=== PATIENT | male | born 1945 | race Caucasian/White ===

== ENCOUNTER 2018-11-03 10:26 | Day surgery (SDC) | payer MEDICARE, OTHER ==
[2018-11-03] MEDS ORDERED: Gatifloxacin 0.5% Ophth Soln 2.5 ML Bot EYELF SCH (10:30)
[2018-11-03] MEDS ORDERED: Lactated Ringers 1,000 ML IV SCH (10:30)
[2018-11-03] MEDS ORDERED: Sodium Chloride 0.9% 10 ML Syringe FLUSH PRN (10:30)
[2018-11-03] MEDS: Phenylephrine 10% Ophth Soln 5 ML Bot EYELF SCH ×3 (10:47→11:15)
[2018-11-03] MEDS: Cyclopentolate 1% Opth Soln 2 ML Bottle EYELF SCH ×3 (10:52→11:34)
[2018-11-03] MEDS ORDERED: Water For Irrigation,Sterile 1,500 ML Container IRR ONE (12:38)
[2018-11-03] MEDS ORDERED: EPINEPHrine 1 MG/ML SDV ONE (12:39)
[2018-11-03] MEDS ORDERED: Balanced Salt Solution Ophth Irrig 15 ML Bottle EYELF ONE (12:39)
[2018-11-03] MEDS ORDERED: Carbachol 0.01% Intraocular 1.5 ML Vial EYELF ONE (12:39)
[2018-11-03] MEDS ORDERED: Balanced Salt Solution Plus Ophth Irrig 500 ML Bottle IOCULAR ONE (12:39)
[2018-11-03] MEDS ORDERED: Dexamethasone/Neomycin/Polymyxin B Ophth Oint 3.5 GM Tube EYELF ONE (12:39)
[2018-11-03] MEDS ORDERED: Hyaluronate Sodium 1% 0.85 ML Syringe IOCULAR ONE (12:40)
[2018-11-03] MEDS ORDERED: Lidocaine 1% 10 ML MDV INJECT ONE (12:40)
[2018-11-03] MEDS ORDERED: Lidocaine 2% with EPINEPHrine 1:100,000 20 ML MDV INJECT ONE (12:40)
[2018-11-03] MEDS ORDERED: Tetracaine HCl/PF 0.5% 4 ML Bottle EYEBOTH ONE (12:40)
--- NOTE | 2018-11-04 08:48 | OR ---
DATE OF SURGERY: 11/03/2018 SURGEON: Saad Ellington MD PREOPERATIVE DIAGNOSIS: Cataract, left eye. POSTOPERATIVE DIAGNOSIS: Cataract, left eye. OPERATION PERFORMED: Phacoemulsification with posterior chamber lens insertion, left eye. HISTORY: The patient presents at this time with increasing amount of difficulty with the left eye with oncoming headlights. Vision for the left eye is 20/70. The left lens has a 3 to 4+ nuclear sclerosis and a 2+ posterior subcapsular cataract finding. This eye has a combined cataract and a cataract of aging. FINDINGS: The patient was taken to the operating room where appropriate anesthesia, sedation and monitoring were provided. A retrobulbar block was given on the left side. The eye was massaged and was found to be appropriately soft. The eye and eyelids were then prepped and draped in the usual sterile manner. A lid speculum was placed. A micro sharp blade was used to enter the anterior chamber inside the limbus inferior-temporally. Xylocaine was irrigated into the eye at this site. Healon was irrigated into the eye through this site. Then using a 2.85 mm corneal blade an entry was made into the anterior chamber just inside the limbus temporally. Healon was again irrigated into the eye. Then using a cystitome, the anterior capsulorrhexis was created. The lens nucleus was hydrodissected using a 27 gauge cannula and balanced salt solution. The phacoemulsification unit was introduced through the temporal site and the Nigel spatula through the inferior temporal site. In so doing, the lens nucleus was phacoemulsified. The cortical fragments of the lens were removed using the irrigation aspiration unit. The posterior capsule was polished. Healon was irrigated into the eye. The posterior chamber lens was inserted and rotated into position inside the capsular bag. The Healon was irrigated out of the eye. Miostat was irrigated into the eye and the pupil rounded nicely. A single interrupted 10-0 Nylon suture was placed through the temporal corneal incision site. Balanced salt solution was irrigated into the eye. The wound was tested and found to be tight. Maxitrol ointment was placed into the patient's left eye. The eyelids were closed and an eye patch and landin shield were placed. The patient left the operating room in good condition. /[id number]/MODL
== END 2018-11-03 13:20 | disposition home or self-care (01) ==
LOC: KA.SDS 10:26
PROVIDERS: ATTEND Ophthalmology
DX: H25.812 Combined forms of age-related cataract, left eye (principal); H90.A21 Sensorineural hearing loss, unilateral, right ear, with restricted hearing on the contralateral side; H90.A32 Mixed conductive and sensorineural hearing loss, unilateral, left ear with restricted hearing on the contralateral side; Z88.0 Allergy status to penicillin
CPT/HCPCS: 66984; A9270; C1780; J0171; J2001; J7120; 00142

== ENCOUNTER 2018-12-01 11:12 | Day surgery (SDC) | payer MEDICARE, OTHER ==
[2018-12-01] MEDS ORDERED: Lactated Ringers 1,000 ML IV SCH (11:15)
[2018-12-01] MEDS ORDERED: Sodium Chloride 0.9% 10 ML Syringe FLUSH PRN (11:15)
[2018-12-01] MEDS ORDERED: Gatifloxacin 0.5% Ophth Soln 2.5 ML Bot EYERT SCH (11:15)
[2018-12-01] MEDS: Phenylephrine 10% Ophth Soln 5 ML Bot EYERT SCH ×3 (11:25→11:48)
[2018-12-01] MEDS: Cyclopentolate 1% Opth Soln 2 ML Bottle EYERT SCH ×3 (11:30→11:55)
[2018-12-01] MEDS ORDERED: Water For Irrigation,Sterile 1,500 ML Container IRR ONE (13:08)
[2018-12-01] MEDS ORDERED: Carbachol 0.01% Intraocular 1.5 ML Vial EYERT ONE (13:08)
[2018-12-01] MEDS ORDERED: Balanced Salt Solution Plus Ophth Irrig 500 ML Bottle IOCULAR ONE (13:08)
[2018-12-01] MEDS ORDERED: Balanced Salt Solution Ophth Irrig 15 ML Bottle EYERT ONE (13:08)
[2018-12-01] MEDS ORDERED: Dexamethasone/Neomycin/Polymyxin B Ophth Oint 3.5 GM Tube EYERT ONE (13:09)
[2018-12-01] MEDS ORDERED: EPINEPHrine 1 MG/ML SDV ONE (13:09)
[2018-12-01] MEDS ORDERED: Lidocaine 1% 10 ML MDV INJECT ONE (13:10)
[2018-12-01] MEDS ORDERED: Hyaluronate Sodium 1% 0.85 ML Syringe IOCULAR ONE (13:10)
[2018-12-01] MEDS ORDERED: Lidocaine 2% with EPINEPHrine 1:100,000 20 ML MDV INJECT ONE (13:10)
[2018-12-01] MEDS ORDERED: Tetracaine HCl/PF 0.5% 4 ML Bottle EYEBOTH ONE (13:11)
--- NOTE | 2018-12-02 10:01 | OR ---
DATE OF SURGERY: 12/01/2018 SURGEON: Saad Ellington MD PREOPERATIVE DIAGNOSIS: Cataract, right eye. POSTOPERATIVE DIAGNOSIS: Cataract, right eye. OPERATION PERFORMED: Phacoemulsification with posterior chamber lens insertion, right eye. HISTORY: The patient presents at this time with an increasing amount of difficulty seeing to drive at night. The vision for the right eye is 20/60 -2. The right lens has a 3 to 4+ nuclear sclerosis and a 2+ posterior subcapsular cataract finding. This eye has a cataract that is listed as combined and it is a cataract of aging. FINDINGS: The patient was taken to the operating room where appropriate anesthesia, sedation and monitoring were provided. A retrobulbar block was given on the right side. The eye was massaged and was found to be appropriately soft. The eye and eyelids were then prepped and draped in the usual sterile manner. A lid speculum was placed. A micro sharp blade was used to enter the anterior chamber inside the limbus superior-temporally. Xylocaine was irrigated into the eye at this site. Healon was irrigated into the eye through this site. Then using a 2.85 mm corneal blade an entry was made into the anterior chamber just inside the limbus temporally. Healon was again irrigated into the eye. Then using a cystitome, the anterior capsulorrhexis was created. The lens nucleus was hydrodissected using a 27 gauge cannula and balanced salt solution. The phacoemulsification unit was introduced through the temporal site and the Nigel spatula through the superior temporal site. In so doing, the lens nucleus was phacoemulsified. The cortical fragments of the lens were removed using the irrigation aspiration unit. The posterior capsule was polished. Healon was irrigated into the eye. The posterior chamber lens was inserted and rotated into position inside the capsular bag. The Healon was irrigated out of the eye. Miostat was irrigated into the eye and the pupil rounded nicely. A single interrupted 10-0 Nylon suture was placed through the temporal corneal incision site. Balanced salt solution was irrigated into the eye. The wound was tested and found to be tight. Maxitrol ointment was placed into the patient's right eye. The eyelids were closed and an eye patch and landin shield were placed. The patient left the operating room in good condition. /[id number]/MODL
== END 2018-12-01 13:38 | disposition home or self-care (01) ==
LOC: KA.SDS 11:12
PROVIDERS: ATTEND Ophthalmology
DX: H25.811 Combined forms of age-related cataract, right eye (principal); H90.3 Sensorineural hearing loss, bilateral; H90.A32 Mixed conductive and sensorineural hearing loss, unilateral, left ear with restricted hearing on the contralateral side; Z98.42 Cataract extraction status, left eye
CPT/HCPCS: 00142; A9270-GY; C1780; J0171; J2001; J7120

== ENCOUNTER 2019-12-11 16:57 | Emergency (ER) | payer MEDICARE, OTHER ==
--- NOTE | 2019-12-11 17:31 | EDM.PDOC ---
ED HPI GENERAL MEDICAL PROBLEM - General Chief Complaint: General Stated Complaint: CHEST PAIN Time Seen by Provider: 12/11/19 17:24 Source of Information: Reports: Patient History Limitations: Reports: No Limitations - History of Present Illness INITIAL COMMENTS - FREE TEXT/NARRATIVE: Patient presents with complaint of chest pain and dyspnea. The chest pain started 7 days ago and has been intermittent and different locations. Sometimes in the right low chest, sometimes left and sometimes in the back. The pain lasts from 30 minutes to a couple hours. It doesn't seem to be worsened by activity or exertion. He says it feels somewhat similar to the reflux he used to have 3+ years ago. The dyspnea awoke him at 0230 this morning and lasted about an hour. He now gets short of breath with walking 500- 600 feet which is unusual for him. He denies cough or fever. No history of heart or lung problems. - Related Data Allergies Allergy/AdvReac Type Severity Reaction Status Date / Time Penicillins Allergy Cannot Verified 12/11/19 17:07 Remember Home Meds: Home Meds . [No Known Home Meds] 10/30/18 [History] Past Medical History HEENT History: Reports: Cataract, Impaired Vision Cardiovascular History: Reports: None Respiratory History: Reports: None Gastrointestinal History: Reports: None Genitourinary History: Reports: None Musculoskeletal History: Reports: None Neurological History: Reports: None Psychiatric History: Reports: None Endocrine/Metabolic History: Reports: None Hematologic History: Reports: None Immunologic History: Reports: None Oncologic (Cancer) History: Reports: Other (See Below) Other Oncologic History: Eyelid cancer Dermatologic History: Reports: None - Infectious Disease History Infectious Disease History: Reports: Mumps - Past Surgical History HEENT Surgical History: Reports: Eye Surgery Cardiovascular Surgical History: Reports: None Respiratory Surgical History: Reports: None GI Surgical History: Reports: Hernia Repair/Other Male Surgical History: Reports: None Endocrine Surgical History: Reports: None Neurological Surgical History: Reports: None Musculoskeletal Surgical History: Reports: None Dermatological Surgical History: Reports: None Social & Family History - Family History Family Medical History: Noncontributory - Tobacco Use Smoking Status *Q: Never Smoker Second Hand Smoke Exposure: No - Caffeine Use Caffeine Use: Reports: Coffee, Soda - Recreational Drug Use Recreational Drug Use: No ED ROS GENERAL - Review of Systems Review Of Systems: See Below Constitutional: Denies: Fever, Chills, Malaise, Weakness HEENT: Denies: Ear Pain, Throat Pain, Vision Change Respiratory: Reports: Shortness of Breath. Denies: Cough Cardiovascular: Reports: Chest Pain. Denies: Lightheadedness, Syncope Endocrine: Denies: Fatigue GI/Abdominal: Reports: Diarrhea (4 times last night). Denies: Abdominal Pain, Nausea, Vomiting : Denies: Dysuria, Flank Pain Musculoskeletal: Denies: Neck Pain, Shoulder Pain, Arm Pain, Back Pain, Hand Pain Skin: Denies: Cyanosis, Jaundice, Mottled, Pallor, Diaphoresis Neurological: Denies: Confusion, Dizziness, Headache, Seizure, Syncope, Trouble Speaking, Difficulty Walking Psychiatric: Denies: Agitation, Anxiety, Confusion ED EXAM, GENERAL - Physical Exam Exam: See Below Exam Limited By: No Limitations General Appearance: Alert, WD/WN, No Apparent Distress Eye Exam: Bilateral Eye: EOMI, Normal Inspection, PERRL Ears: Normal External Exam, Hearing Grossly Normal Nose: Normal Inspection, No Blood Throat/Mouth: Normal Inspection, Normal Lips, Normal Voice, No Airway Compromise Head: Atraumatic, Normocephalic Neck: Normal Inspection, Supple, Full Range of Motion Respiratory/Chest: No Respiratory Distress, Lungs Clear, Normal Breath Sounds, No Accessory Muscle Use, Chest Non-Tender Cardiovascular: Regular Rate, Rhythm, No Murmur GI/Abdominal: Normal Bowel Sounds, Soft, Non-Tender, No Organomegaly, No Distention Back Exam: Normal Inspection, Full Range of Motion. No: CVA Tenderness (L), CVA Tenderness (R) Extremities: Normal Inspection, Normal Range of Motion Neurological: Alert, Oriented, Normal Cognition, No Motor/Sensory Deficits Psychiatric: Normal Affect, Normal Mood Skin Exam: Warm, Dry, Intact, Normal Color, No Rash Course - Vital Signs Last Recorded V/S: Last Vital Signs Temp 97.4 F 12/11/19 17:08 Pulse 74 12/11/19 17:08 Resp 18 12/11/19 17:08 BP 161/78 H 12/11/19 17:08 Pulse Ox 99 12/11/19 17:08 - Orders/Labs/Meds Orders: Active Orders 24 hr Category Date Time Status EKG Documentation Completion [RC] ASDIRECTED Care 12/11/19 17:25 Ordered EKG 12 Lead [EK] Routine Ther 12/11/19 17:24 Ordered Labs: Laboratory Tests 12/11/19 12/11/19 12/11/19 Range/Units 17:30 17:30 17:30 WBC 5.13 (5.00-10.00) 10^3/uL RBC 4.13 L (4.50-6.00) 10^6/uL Hgb 13.6 (13.0-17.0) g/dL Hct 39.7 L (40.0-52.0) % MCV 96.1 H (82.0-92.0) fL MCH 32.9 H (27.0-31.0) pg MCHC 34.3 (32.0-36.0) g/dL RDW 12.3 (11.5-14.5) % Plt Count 242 (150-400) 10^3/uL MPV 11.3 H (7.4-10.4) fL Immature Gran % (Auto) 0.2 (0.0-5.0) % Neut % (Auto) 62.7 (50.0-70.0) % Lymph % (Auto) 24.2 (20.0-40.0) % [place] % (Auto) 8.4 H (2.0-8.0) % Eos % (Auto) 2.9 (1.0-3.0) % Baso % (Auto) 1.6 H (0.0-1.0) % Immature Gran # (Auto) 0.01 (0.00-0.50) 10^3/uL Neut # (Auto) 3.22 (2.50-7.00) 10^3/uL Lymph # (Auto) 1.24 (1.00-4.00) 10^3/uL [place] # (Auto) 0.43 (0.10-0.80) 10^3/uL Eos # (Auto) 0.15 (0.10-0.30) 10^3/uL Baso # (Auto) 0.08 (0.00-0.10) 10^3/uL Sodium 142 (136-145) mmol/L Potassium 3.6 (3.3-5.3) mmol/L Chloride 103 (98-115) mmol/L Carbon Dioxide 26.8 (21.0-32.0) mmol/L Anion Gap 15.8 H (5-15) mmol/L BUN 15 (6-25) mg/dL Creatinine 0.83 (0.51-1.17) mg/dL Est Cr Clr Drug Dosing 70.13 mL/min Estimated GFR (MDRD) > 60 mL/min Glucose 93 (75 - 99) mg/dL Lactic Acid 1.4 (0.4-2.0) mmol/L Calcium 9.3 (8.7-10.3) mg/dL Troponin I < 0.04 (0.00-0.070) ng/mL - Re-Assessments/Exams Free Text/Narrative Re-Assessment/Exam: 12/11/19 18:12 Labs, CXR and EKG are normal. No evidence of SC or pneumonia. Patient is feeling great. I discussed findings and treatment plan with him including seeing his PCP next week to schedule a cardiac stress test. Since he isn't currently having the pain we can't rule out reflux with a GI cocktail. Patient discharged to home in stable condition. Departure - Departure Time of Disposition: 18:10 Disposition: Home, Self-Care 01 Condition: Good Clinical Impression: Chest pain of uncertain etiology, Dyspnea on exertion - Discharge Information Instructions: Shortness of Breath, Adult, [id number], Nonspecific Chest Pain Referrals: Maryana Mattson, [employer] [Primary Care Provider] - Forms: ED Department Discharge Additional Instructions: 1. Drink 8 cups of water daily. 2. Follow up with your PCP next week for recheck and to discuss getting a cardiac stress test. 3. Return to ER as needed. Sepsis Event Note - Evaluation Sepsis Screening Result: No Definite Risk - Focused Exam Vital Signs: Vital Signs Temp Pulse Resp BP Pulse Ox 12/11/19 17:08 97.4 F 74 18 161/78 H 99 Date Exam was Performed: 12/11/19 Time Exam was Performed: 18:17 - My Orders Last 24 Hours: My Active Orders 12/11/19 17:24 EKG 12 Lead [EK] Routine 12/11/19 17:25 EKG Documentation Completion [RC] ASDIRECTED - Assessment/Plan Last 24 Hours: My Active Orders 12/11/19 17:24 EKG 12 Lead [EK] Routine 12/11/19 17:25 EKG Documentation Completion [RC] ASDIRECTED
--- NOTE | 2019-12-11 18:00 | CR ---
[id number] RAD/RAD Chest PA And Lateral EXAM: RAD Chest PA And Lateral INDICATION: DYSPNEA, CHEST PAIN. COMPARISON: None. DISCUSSION: Cardiomediastinal silhouette is normal in size and contour. Bilateral and symmetric lung hyperinflation with flattening of the hemidiaphragms. Findings are commonly seen as sequela of chronic obstructive pulmonary disease. No infiltrate, effusion, pneumothorax, or edema. IMPRESSION: No acute findings in the chest. Other findings are described above. Darian Valverde MD 12/11/19 [id number] Thank you for allowing us to participate in the care of your patient.
[2019-12-11 18:04] LABS: ANION GAP 15.8 mmol/L (5-15); CHLORIDE,CL 103 mmol/L (98-115); SODIUM,NA 142 mmol/L (136-145)
== END 2019-12-11 18:20 | disposition home or self-care (01) ==
LOC: KA.ED 16:57
DX: R07.9 Chest pain, unspecified (principal); R06.00 Dyspnea, unspecified; Z88.0 Allergy status to penicillin
CPT/HCPCS: 36415; 71046; 80048; 83605; 84484; 85025; 93005; 99284; 99285-25

== ENCOUNTER 2022-01-21 06:39 | Day surgery (SDC) | payer MEDICARE, OTHER ==
[2022-01-21] MEDS ORDERED: Sodium Chloride 0.9% 10 ML Syringe FLUSH PRN (07:00)
[2022-01-21] MEDS ORDERED: Lactated Ringers 1,000 ML IV SCH (07:00)
[2022-01-21] MEDS ORDERED: Propofol 200 MG/20 ML SDV ONE (07:30)
[2022-01-21] MEDS ORDERED: Glycopyrrolate 0.2 MG/ML SDV ONE (07:30)
[2022-01-21] MEDS ORDERED: Midazolam 1 MG/ML 2 ML SDV ONE (07:30)
[2022-01-21] MEDS ORDERED: Lidocaine 2% 5 ML SDV ONE (07:30)
== END 2022-01-21 10:24 | disposition home or self-care (01) ==
LOC: KA.SDS 06:39
PROVIDERS: ATTEND Family Medicine
DX: Z12.11 Encounter for screening for malignant neoplasm of colon (principal); D12.4 Benign neoplasm of descending colon; I78.1 Nevus, non-neoplastic; K31.A0 Gastric intestinal metaplasia, unspecified; K21.9 Gastro-esophageal reflux disease without esophagitis; K22.89 Other specified disease of esophagus; Z88.0 Allergy status to penicillin; Z20.822 Contact with and (suspected) exposure to COVID-19; Z80.0 Family history of malignant neoplasm of digestive organs
CPT/HCPCS: 00813; J2250; J2704; J3490; J7120